=== PATIENT | female | born 1980 | race Two or more races ===

== ENCOUNTER 2023-01-18 18:20 | Emergency (ER) | payer MEDICAID, OTHER ==
[~2023-01-18] VITALS: Ht 170.2 cm; Wt 76.4 kg
[2023-01-18 18:25] VITALS: BP 124/83
[2023-01-18] MEDS ORDERED: IBUPROFEN 400MG TABLET PO ONE (19:00)
[2023-01-18] MEDS ORDERED: IBUP-2028 MT (19:44)
== END 2023-01-18 20:20 | disposition home or self-care (01) ==
LOC: ER 18:20
DX: S69.92XA Unspecified injury of left wrist, hand and finger(s), initial encounter (principal); Z90.49 Acquired absence of other specified parts of digestive tract; X50.1XXA Overexertion from prolonged static or awkward postures, initial encounter; Y93.89 Activity, other specified; Y92.89 Other specified places as the place of occurrence of the external cause; Y99.8 Other external cause status
CPT/HCPCS: 29125; 73110; 73130; 99284